=== PATIENT | male | born 1975 | race American Indian/Alaskan Native ===

== ENCOUNTER 2018-04-02 04:43 | Emergency (ER) | payer OTHER ==
[2018-04-02] MEDS ORDERED: ROCEPHIN IM ONE (06:35)
[2018-04-02] MEDS ORDERED: XYLOCAINE 1% MPF 5 mL INFILTRATI ONE (06:35)
[2018-04-02] MEDS ORDERED: ZITHROMAX PO ONE (06:35)
--- NOTE | 2018-04-02 06:40 | Emergency Department Report ---
HPI - General Chief Complaint: Urogenital-Male Time Seen by Provider: 04/02/18 06:31 - [facility] HPI: Room 23 The patient is a 42-year-old male presented with a chief complaint of penile discharge. Patient states he had intercourse with a female and today he developed penile discharge. Patient states his discharge his white and he has dysuria. Patient denies hematuria or fever or penile lesions Location: Penis Duration: One night Quality: Pain Severity: Moderate Modifying factors: [see above] Context: [see above] Mode of transportation: [not driving] ED Past Medical Hx - Past Medical History Previous Medical History?: Yes Hx Hypertension: Yes (10 yrs) Hx Renal Disease: Yes Additional medical history: pancreatitis - Surgical History Past Surgical History?: No - Family History Family history: no significant - Social History Smoking Status: Never Smoker Substance Use Type: None (denies illicit drug use) - Medications Home Medications: Home Medications Medication Instructions Recorded Confirmed Last Taken Type Atenolol [Tenormin] 25 mg PO DAILY 04/16/14 04/16/14 04/16/14 History Doxycycline [Vibramycin CAP] 100 mg PO Q12HR #14 capsule 04/02/18 Unknown Rx Phenazopyridine [Pyridium] 200 mg PO TID #6 tab 04/02/18 Unknown Rx ED Review of Systems ROS: Stated complaint: DISCHARGE FROM PENIS Other details as noted in HPI Constitutional: denies: fever Eyes: denies: eye pain ENT: denies: throat pain Respiratory: no symptoms reported Cardiovascular: denies: chest pain Endocrine: no symptoms reported Gastrointestinal: denies: abdominal pain Genitourinary: dysuria, discharge. denies: hematuria Musculoskeletal: denies: back pain Neurological: denies: headache Physical Exam - Physical Exam Vital Signs: Vital Signs 04/02/18 04:55 Temperature 98.6 F Pulse Rate 62 Respiratory 20 Rate Blood Pressure 110/70 O2 Sat by Pulse 98 Oximetry Physical Exam: GENERAL: The patient is well-developed well-nourished male lying on stretcher not appear to be in acute distress. [] HEENT: Normocephalic. Atraumatic. Extraocular motions are intact. Patient has moist mucous membranes. NECK: Supple. Trachea midline CHEST/LUNGS: Clear to auscultation. There is no respiratory distress noted. HEART/CARDIOVASCULAR: Regular. There is no tachycardia. There is no gallop rub or murmur. ABDOMEN: Abdomen is soft, nontender. Patient has normal bowel sounds. There is no abdominal distention. SKIN: There is no rash. There is no edema. There is no diaphoresis. NEURO: The patient is awake, alert, and oriented. The patient is cooperative. The patient has normal speech MUSCULOSKELETAL: There is no evidence of acute injury. ED Course Vital Signs 04/02/18 04:55 Temperature 98.6 F Pulse Rate 62 Respiratory 20 Rate Blood Pressure 110/70 O2 Sat by Pulse 98 Oximetry ED Medical Decision Making - Lab Data Laboratory Tests 04/02/18 Unknown Urine Color Yellow Urine Turbidity Slightly cloudy Urine pH 5.0 Ur Specific [place] 1.009 Urine Protein 100 mg/dl Urine Glucose (UA) Neg Urine Ketones Neg Urine Blood Neg Urine Nitrite Neg Urine Bilirubin Neg Urine Urobilinogen < 2.0 Ur Leukocyte Esterase Lg Urine WBC (Auto) 55.0 H Urine RBC (Auto) 1.0 U Epithel Cells (Auto) < 1.0 Urine Bacteria (Auto) 1+ Urine WBC Clumps Few - Differential Diagnosis gonorrhea, chlamydia, urethritis, UTI Critical care attestation.: If time is entered above; I have spent that time in minutes in the direct care of this critically ill patient, excluding procedure time. ED Disposition Clinical Impression: Urethritis, Dysuria Disposition: -01 TO HOME OR SELFCARE Is pt being admited?: No Does the pt Need Aspirin: No Condition: Stable Instructions: Nonspecific Urethritis in Men (ED), Sexually Transmitted Diseases (ED) Additional Instructions: Return to the emergency department immediately should you develop worsening symptoms, fever, inability to tolerate food or liquid or any other concerns. Prescriptions: Doxycycline [Vibramycin CAP] 100 mg PO Q12HR #14 capsule Phenazopyridine [Pyridium] 200 mg PO TID #6 tab Referrals: PRIMARY CARE, [Primary Care Provider] - 3-5 Days [facility] [Outside] - 3-5 Days Forms: STI Treatment and Prevention Time of Disposition: 07:04
[2018-04-02 06:57] VITALS: BP 121/73
[2018-04-02 07:01] LABS: Bacteria,Urine 1+ /HPF (Negative); Bilirubin,Urine NEG (Negative); Blood,Urine NEG (Negative); Color,Urine Yellow (Yellow); Urobilinogen,Urine < 2.0 mg/dL (<2.0)
== END 2018-04-02 07:41 | disposition home or self-care (01) ==
LOC: EDBD → ED 04:43
DX: N34.2 Other urethritis (principal); I10 Essential (primary) hypertension
CPT/HCPCS: 81001; 87086; 87591; 96372; 99283; J0696

== ENCOUNTER 2018-04-29 21:55 | Emergency (ER) | payer OTHER ==
[2018-04-29 22:23] VITALS: BP 140/91
[2018-04-29 22:59] LABS: Bilirubin,Urine NEG (Negative); Blood,Urine NEG (Negative); Color,Urine Colorless (Yellow); Mucus,Urine FEW /HPF; Protein,Urine <15 mg/dL mg/dL (Negative); RBC,Urine < 1.0 /HPF (0.0-6.0); Urobilinogen,Urine < 2.0 mg/dL (<2.0)
[2018-04-29 22:59] LABS: Basophils # (Auto) 0.1 K/mm3 (0.0-0.1); Basophils % (Auto) 1.1 % (0.0-1.8); Eosinophils # (Auto) 0.1 K/mm3 (0.0-0.4); Eosinophils % (Auto) 1.2 % (0.0-4.3); Hematocrit 38.8 % (35.5-45.6); Hemoglobin 13.3 gm/dl (11.8-15.2); Lymphocytes # (Auto) 2.3 K/mm3 (1.2-5.4); Lymphocytes % (Auto) 29.5 % (13.4-35.0); Mean Corpuscular HGB Conc 34 % (32-34); Mean Corpuscular Volume 95 fl (84-94); Monocytes # (Auto) 0.5 K/mm3 (0.0-0.8); Monocytes % (Auto) 6.8 % (0.0-7.3); Platelet Count 169 K/mm3 (140-440); Red Blood Count 4.08 M/mm3 (3.65-5.03); Red Cell Distribution Width 13.2 % (13.2-15.2)
[2018-04-29 23:28] LABS: Alanine Aminotransferase 14 units/L (7-56); Albumin 4.7 g/dL (3.9-5); BUN/Creatinine Ratio 14; Blood Urea Nitrogen 36 mg/dL (9-20); Calcium 9.4 mg/dL (8.4-10.2); Hemolysis Index 14
[2018-04-30] MEDS ORDERED: ZITHROMAX PO STA (01:04)
[2018-04-30] MEDS ORDERED: ROCEPHIN IM STA (01:04)
[2018-04-30] MEDS ORDERED: XYLOCAINE 1% MPF 5 mL INFILTRATI ONE (01:04)
--- NOTE | 2018-04-30 02:24 | Emergency Department Report ---
ED Male HPI - General Chief complaint: Abdominal Pain Stated complaint: BACK PAIN,KIDNEY PAIN, POSS UTI Time Seen by Provider: 04/30/18 00:50 Source: patient Mode of arrival: Ambulatory Limitations: No Limitations - History of Present Illness Initial comments: 42-year-old -[place] male with past medical history of stage III renal insufficiency to emergency Department complaining of dysuria with low white discharge at the having sex with a reported friend and experiencing a broken condom a few days ago. Reports no fever, chills, sweats, chest pain, palpitations. No nausea, vomiting, no significant no no hematuria. Has been having some polyuria. They stated this is similar to a previous episode where he had a urinary tract infection. He will like to be evaluated for urinary tract infection as well. Is been no headache or presyncope, or rashes appreciated. No testicular pain. Radiation: none Severity: mild Consistency: constant Improves with: none Worsens with: none, urination discharge, dysuria - Related Data Home Medications Medication Instructions Recorded Confirmed Last Taken Atenolol [Tenormin] 25 mg PO DAILY 04/16/14 04/16/14 04/16/14 Previous Rx's Medication Instructions Recorded Last Taken Type Doxycycline [Vibramycin CAP] 100 mg PO Q12HR #14 capsule 04/02/18 Unknown Rx Phenazopyridine [Pyridium] 200 mg PO TID #6 tab 04/02/18 Unknown Rx metroNIDAZOLE [Flagyl] 2,000 mg PO ONCE #4 tab 04/30/18 Unknown Rx Allergies Allergy/AdvReac Type Severity Reaction Status Date / Time No Known Allergies Allergy Verified 04/16/14 23:23 ED Review of Systems ROS: Stated complaint: BACK PAIN,KIDNEY PAIN, POSS UTI Other details as noted in HPI Constitutional: denies: chills, fever Eyes: denies: eye pain, eye discharge, vision change ENT: denies: ear pain, throat pain Respiratory: denies: cough, shortness of breath, wheezing Cardiovascular: denies: chest pain, palpitations Endocrine: no symptoms reported Gastrointestinal: denies: abdominal pain, nausea, diarrhea Genitourinary: dysuria. denies: urgency Musculoskeletal: denies: back pain, joint swelling, arthralgia Skin: denies: rash, lesions Neurological: denies: headache, weakness, paresthesias Psychiatric: denies: anxiety, depression Hematological/Lymphatic: denies: easy bleeding, easy bruising ED Past Medical Hx - Past Medical History Previous Medical History?: Yes Hx Hypertension: Yes (10 yrs) Hx Renal Disease: Yes Additional medical history: pancreatitis - Surgical History Past Surgical History?: No - Social History Smoking Status: Never Smoker Substance Use Type: None - Medications Home Medications: Home Medications Medication Instructions Recorded Confirmed Last Taken Type Atenolol [Tenormin] 25 mg PO DAILY 04/16/14 04/16/14 04/16/14 History Doxycycline [Vibramycin CAP] 100 mg PO Q12HR #14 capsule 04/02/18 Unknown Rx Phenazopyridine [Pyridium] 200 mg PO TID #6 tab 04/02/18 Unknown Rx metroNIDAZOLE [Flagyl] 2,000 mg PO ONCE #4 tab 04/30/18 Unknown Rx ED Physical Exam - General Limitations: No Limitations General appearance: alert, in no apparent distress - Head Head exam: Present: atraumatic, normocephalic - Eye Eye exam: Present: normal appearance, PERRL, EOMI - ENT ENT exam: Present: normal exam, mucous membranes moist - Neck Neck exam: Present: normal inspection, full ROM - Respiratory Respiratory exam: Present: normal lung sounds bilaterally. Absent: respiratory distress, wheezes, rales, chest wall tenderness, accessory muscle use, decreased breath sounds - Cardiovascular Cardiovascular Exam: Present: regular rate, normal rhythm, normal heart sounds. Absent: bradycardia, tachycardia, systolic murmur, diastolic murmur, rubs, gallop - GI/Abdominal GI/Abdominal exam: Present: soft, normal bowel sounds. Absent: tenderness, guarding, hyperactive bowel sounds, hypoactive bowel sounds, organomegaly - Rectal Rectal exam: Present: deferred - exam: Absent: testicular tenderness, scrotal swelling External exam: Absent: erythema, swelling, lesions, lacerations, ecchymosis - Extremities Exam Extremities exam: Present: normal inspection - Back Exam Back exam: Present: normal inspection, full ROM. Absent: CVA tenderness (R), CVA tenderness (L) - Neurological Exam Neurological exam: Present: alert, oriented X3, CN II-XII intact, normal gait - Psychiatric Psychiatric exam: Present: normal affect, normal mood - Skin Skin exam: Present: warm, dry, intact, normal color. Absent: rash ED Course Vital Signs 04/29/18 22:18 Temperature 98.9 F Pulse Rate 68 Respiratory 20 Rate Blood Pressure 140/91 O2 Sat by Pulse 100 Oximetry ED Medical Decision Making - Lab Data Result diagrams: 04/29/18 22:42 04/29/18 22:42 Critical care attestation.: If time is entered above; I have spent that time in minutes in the direct care of this critically ill patient, excluding procedure time. ED Disposition Clinical Impression: Penile discharge Disposition: DC-01 TO HOME OR SELFCARE Is pt being admited?: No Does the pt Need Aspirin: No Condition: Stable Instructions: Dysuria (ED), Safe Sex (ED) Prescriptions: metroNIDAZOLE [Flagyl] 2,000 mg PO ONCE #4 tab Referrals: NAGA ERAZO MD [Primary Care Provider] - 3-5 Days
== END 2018-04-30 02:50 | disposition home or self-care (01) ==
LOC: ED 21:55
DX: R36.9 Urethral discharge, unspecified (principal); R30.0 Dysuria; I12.9 Hypertensive chronic kidney disease with stage 1 through stage 4 chronic kidney disease, or unspecified chronic kidney disease; N18.3 Chronic kidney disease, stage 3 (moderate)
CPT/HCPCS: 36415; 80053; 81001; 85025; 96372; 99283; J0696